=== PATIENT | male | born 1965 ===

== ENCOUNTER 2017-02-02 05:16 | Observation (INO) | payer OTHER ==
[~2017-02-02] VITALS: Ht 177.8 cm; Wt 97.5 kg
[2017-02-02] VITALS (9 sets, daily range): BP systolic 111–138; BP diastolic 70–86
[2017-02-02] MEDS ORDERED: Dexamethasone 4mg/ml vial ONE (06:10)
[2017-02-02] MEDS ORDERED: LR 1000ml 1,000 ML IVLG SCH (06:37)
--- NOTE | 2017-02-02 06:37 | Anethesia Preoperative Eval ---
Anesthesia Pre-op PMH/ROS General Date of Evaluation: Feb 02, 2017 Time of Evaluation: 07:06 Anesthesiologist: Hank ASA Score: ASA 3 Mallampati Score Class I : Soft palate, uvula, fauces, pillars visible Class II: Soft palate, uvula, fauces visible Class III: Soft palate, base of uvula visible Class IV: Only hard plate visible Mallampati Classification: Class III Surgeon: Murphy Diagnosis: Neck Pain Surgical Procedure: ACDF C5-6 Anesthesia History: none Family History: no anesthesia problems Allergies: Coded Allergies: LISINOPRIL (Verified Allergy, Severe, 02/02/17) COUGHING Medications: see eMAR Past Medical History Cardiovascular: Reports: HTN Pulmonary: Reports: ESVIN Other: obesity - BMI 30 Anesthesia Pre-op Phys. Exam Physician Exam Last Vital Signs Date Time Temp Pulse Resp B/P Pulse Ox O2 Delivery O2 Flow Rate FiO2 02/02/17 06:07 97.2 62 20 116/84 97 Room Air Constitutional: NAD Neurologic: CN 2-12 intact Cardiovascular: RRR Respiratory: CTA Gastrointestinal: S/NT/ND Airway Exam Mallampati Score: Class III MO: limited ROM: limited Teeth: intact Anesthesia Pre-op A/P Risk Assessment & Plan Assessment: ASA 3 Plan: GA, BIS, Glidescope Status Change Before Surgery: No Pre-Antibiotics Dru Grams Ancef IV Given Within 1 Hr of Incision: Yes Time Given: 07:16 Solomon Mckinney MD Feb 02, 2017 06:37
[2017-02-02] MEDS ORDERED: Surgicel 4in x 8in TOPIC ONE (06:45)
[2017-02-02] MEDS ORDERED: Ketorolac 60mg Inj IV PRN (06:45)
[2017-02-02] MEDS ORDERED: Norco 5mg/325mg tab ORAL PRN (06:45)
[2017-02-02] MEDS ORDERED: Meperidine 25mg/0.5ml Inj (FOR RIGORS ONLY) IV PRN (06:45)
[2017-02-02] MEDS ORDERED: LORazepam Inj 2mg/ml 1ml IV PRN (06:45)
[2017-02-02] MEDS ORDERED: Ketorolac 30mg Inj IV PRN (06:45)
[2017-02-02] MEDS ORDERED: Norco 7.5mg/325mg tab ORAL PRN (06:45)
[2017-02-02] MEDS ORDERED: Hydromorphone 0.5mg/0.5ml inj IVP PRN (06:45)
[2017-02-02] MEDS ORDERED: oxyCODONE HCL/Acetaminophen 5/325mg ORAL PRN (06:45)
[2017-02-02] MEDS ORDERED: Midazolam 2mg/2ml Inj IVP PRN (06:45)
[2017-02-02] MEDS ORDERED: Lidocaine 1% Plain 30 ml INJ ONE ×2 (06:45→06:46)
[2017-02-02] MEDS ORDERED: DiphenhydrAMINE 50mg/ml Inj IVP PRN (06:45)
[2017-02-02] MEDS ORDERED: Atropine Inj 1mg/10ml Syr IV PRN (06:45)
[2017-02-02] MEDS ORDERED: Dexamethasone 4mg/ml vial IVP ONE (06:45)
[2017-02-02] MEDS ORDERED: Metoclopramide 10mg/2ml Inj IVP PRN (06:45)
[2017-02-02] MEDS ORDERED: Thrombin 5000 units TOPIC ONE (06:45)
[2017-02-02] MEDS ORDERED: fentaNYL 100 mcg/2 mL IV PRN (06:45)
[2017-02-02] MEDS ORDERED: Vancomycin 1gm inj IVPB ONE (06:45)
[2017-02-02] MEDS ORDERED: Bupivacaine w/Epi 0.5% 30ml Vial INJ ONE (06:46)
[2017-02-02] MEDS ORDERED: Bupivacaine 0.5% Inj 30 ml vial INJ ONE (06:46)
[2017-02-02] MEDS ORDERED: Bacitracin 50000 Units Vial ONE (06:46)
[2017-02-02] MEDS ORDERED: Zemuron 50mg/5ml Inj IV ONE (07:00)
[2017-02-02] MEDS ORDERED: Dexamethasone Inj PF*Surgery use* 10 MG/ML VIAL IV ONE (07:00)
[2017-02-02] MEDS ORDERED: Sterile Water Irrig 1000ml IRRIG ONE (07:00)
[2017-02-02] MEDS ORDERED: Lidocaine 1% MPF 10mg/ml 5ml ONE (07:00)
[2017-02-02] MEDS ORDERED: Glycopyrrolate 0.2mg/ml 1ml Vial ONE (07:00)
[2017-02-02] MEDS ORDERED: Propofol 10mg/ml 100ml btl IV ONE (07:00)
[2017-02-02] MEDS ORDERED: Neostigmine 1mg/ml 10ml Inj ONE (07:00)
[2017-02-02] MEDS ORDERED: LR 1000ml ONE (07:00)
[2017-02-02] MEDS ORDERED: Labetalol 5mg/ml 20ml vial IV ONE (07:00)
[2017-02-02] MEDS ORDERED: ceFAZolin 1gm/50ml Premix 50 ML IV ONE (07:00)
[2017-02-02] MEDS ORDERED: fentaNYL 250mcg/5ml ONE (07:00)
[2017-02-02] MEDS ORDERED: fentaNYL 100 mcg/2 mL IV ONE ×2 (07:00)
[2017-02-02] MEDS ORDERED: NS Irrig 1000ml ONE (07:00)
[2017-02-02] MEDS ORDERED: Acetaminophen (Non formulary) 1,000 MG/100 ML ML IV ONE (07:30)
[2017-02-02] MEDS ORDERED: Muri-Lube ONE (08:23)
--- NOTE | 2017-02-02 09:29 | Immediate Post-Op Evaluation ---
Immediate Post-Op Evalulation Immediate Post-Op Evalulation Procedure: ACDF C5-6 Date of Evaluation: Feb 02, 2017 Time of Evaluation: 10:34 IV Fluids: 1000 LR Blood Products: 0 Estimated Blood Loss: 25 Urinary Output: 0 Blood Pressure Systolic: 111 Blood Pressure Diastolic: 72 Pulse Rate: 76 Respiratory Rate: 16 O2 Sat by Pulse Oximetry: 100 Temperature (Fahrenheit): 97.7 Pain Score (1-10): 3 Nausea: No Vomiting: No Complications 0 Patient Status: awake, reacts, patent, extubated, none Hydration Status: adequate Dru Grams Ancef IV Given Within 1 Hr of Incision: Yes Time Given: 07:16 Solomon Mckinney MD Feb 02, 2017 09:29
--- NOTE | 2017-02-02 09:30 | 48 Hour Post Anesthesia Eval ---
Post Anesthesia Evaluation Procedure: ACDF C5-6 Date of Evaluation: Feb 02, 2017 Time of Evaluation: 12:42 Blood Pressure Systolic: 132 0: 78 Pulse Rate: 76 Respiratory Rate: 18 Temperature (Fahrenheit): 98.2 O2 Sat by Pulse Oximetry: 99 Airway: patent Nausea: No Vomiting: No Pain Intensity: 3 Hydration Status: adequate Cardiopulmonary Status: STABLE Mental Status/LOC: patient returned to baseline Follow-up Care/Observations: 0 Post-Anesthesia Complications: 0 Follow-up care needed: N/A Solomon Mckinney MD Feb 02, 2017 09:30
--- NOTE | 2017-02-02 09:57 | Pre-Procedure Note/Attestation ---
Pre-Procedure Note/Attestation Complete Prior to Procedure Planned Procedure: not applicable Procedure Narrative: C5-C6 interbody reconstruction / fusion hemivertebrectomy C5, C6 anterior plate C5, C6 SEEP xray microscope body habitus Attestation I attest that I discussed the nature of the procedure; its benefits; risks and complications; and alternatives (and the risks and benefits of such alternatives ), prior to the procedure, with the patient (or the patient's legal loan representative). I attest that, if there was a reasonable possibility of needing a blood transfusion, the patient (or the patient's legal loan representative) was given the [place] [facility] standardized written summary, pursuant to the Donnie [place] Blood Safety Act ([place] Health and Safety Code # 1645, as amended). I attest that I re-evaluated the patient just prior to the surgery and that there has been no change in the patient's H&P, except as documented below: OKSANA TILLMAN Feb 02, 2017 09:57
--- NOTE | 2017-02-02 10:00 | Brief Operative Note ---
Immediate Post Operative Note Operative Note Pre-op Diagnosis: Post trauma HNP discogenic neck pain Procedure: hemivertebrectomy C5-6, reconstruction, fusion, plate ssep, microscope, xray, body habitus Post-op Diagnosis: same as pre-op Findings: consistent w/pre-op dx studies Surgeon: Murphy GARCÍA [employer] Academic Coach: Sofia KC Anesthesiologist: Hank Anesthesia: general Specimen: none Complications: none Condition: stable Estimated Blood Loss: minimal Implant(s) used?: Yes OKSANA TILLMAN Feb 02, 2017 09:59
[2017-02-02] MEDS ORDERED: D5 1/2NS 1,000 ML IV SCH (12:30)
--- NOTE | 2017-02-02 12:43 | Diagnostic Imaging Report ---
Indication: PAIN Technique: Intraoperative images Comparison: None Findings: Surgical tool projects the anterior aspect of the C5-6 disc. Subsequent images document anterior fusion at C5-6. Impression: Intraoperative images, as described
[2017-02-02] MEDS ORDERED: Naloxone 0.4mg/ml Inj IVP PRN (13:00)
[2017-02-02] MEDS ORDERED: HYDROmorphone 1mg/ml Carpuject SUBQ PRN (13:00)
[2017-02-02] MEDS ORDERED: oxyCODONE 5mg IR tab ORAL ONE (15:00)
[2017-02-02] MEDS ORDERED: ceFAZolin sod 1 GM in D5W 55 ML IV SCH (15:00)
[2017-02-02] MEDS ORDERED: Morphine Sulfate 4mg/ml Inj IM PRN (15:00)
[2017-02-02] MEDS ORDERED: Chloraseptic Spray 20mL Bottle ORAL PRN (15:00)
[2017-02-02] MEDS ORDERED: PERCOCET 10-321 EAC1 PO (15:11)
[2017-02-02] MEDS ORDERED: PERCOCET 10-321 EACH ORAL (15:13)
[2017-02-02] MEDS ORDERED: oxyCODONE 5mg IR tab ORAL PRN (15:15)
[2017-02-02] MEDS ORDERED: D5 1/2NS 1000ml IV ONE (16:01)
--- NOTE | 2017-02-02 16:45 | Operative Note - Dictated ---
DATE OF OPERATION: 02/02/2017 SURGEON: Lavon Arrington, Ph.D. M.D. AIR DEFENSE SPECIALIST: YAMINI Comer. ANESTHESIOLOGIST: Solomon Mckinney M.D. ANESTHESIA: General with intubation. 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 POSTOPERATIVE DIAGNOSES: Posttraumatic cervical herniated nucleus polyposis/radiculopathy. ESTIMATED BLOOD LOSS: Minimal. COMPLICATIONS: None. POSTOPERATIVE CONDITION: Good/stable. PROCEDURE: 1. Bhargav-vertebrectomy C5. 2. Bhargav-vertebrectomy C6. 3. Interbody reconstruction fusion C5-C6. 4. Anterior internal plate fixation C5-C6. 5. Intraoperative fluoroscopy interpreted by surgeon. 6. High-powered microscopic dissection. 7. SSEP monitoring. 8. The patient's body habitus greater than 95th percentile for height. DESCRIPTION OF PROCEDURE: The patient was brought to the operating room and laid in the supine position. General anesthesia with intubation was induced. IV antibiotics and IV Decadron were administered 30 minutes prior to incision time. Spinal needle within the sheath was taped to the contralateral aspect of the cervical spine. A cross-table image was obtained demonstrating the correct level for incision placement. Marker was removed. The skin was sterilely marked on the left transverse aspect of the anterior neck. The skin was sterilely prepped and draped free in the usual sterile fashion. A longitudinal transverse left incision sharply placed at the dermis and epidermis. Electrocautery dissection was carried to the subcutaneous tissue to the level of the platysmas muscle was identified, isolated, and transected in line with the incision. Dissection was carried medial to the carotid sheath and the left sternocleidomastoid muscle to the deep cervical and pretracheal fascia to the midline between the right and left longus colli muscles. Large anterior osteophyte identified. Spinal needle bent at 90-degree angle so as to avoid penetration greater than 3 mm placed into the disk space. A cross-table image obtained under sterile conditions demonstrating the correct level for further dissection. Level was marked. Needle removed. Subperiosteal dissection of the longus coli muscles. Retractors placed. Large anterior osteophyte resected with Midas Berhane bur dissection under high-power magnification. Bhargav-vertebrectomy inferior C5, superior C6 to the posterior longitudinal ligament. Anterior foraminotomy undertaken left. No dural tears or leaks noted anytime during the procedure. SSEP monitoring stable. Interpositional grafting with osteoinductive material contained within PEEK lordotic cage with the appropriate dimensions. The PEEK placed under high-power magnification. SSEP monitoring stable. All traction on the neck removed. Anterior internal fixation with 17 mm screws in a compressive fashion to an anterior plate. Anterior plate locked into position. Fluoroscopic imaging demonstrating the correct level and excellent placement. Wound irrigated with antibiotic-containing saline. Exploration revealed no evidence of excoriation or laceration of vital structures. FloSeal applied followed with vancomycin powder. Platysmas muscle reapproximated with simple interrupted sutures. Dermis and epidermis reapproximated. Surgical strips applied transverse to the incision followed with sterile bandage maintained in place with tape. The patient awakened and extubated in the operating room and transported to postop recovery in good stable condition. Lavon Arrington M.D. DR: IAIN JOB#: [id number] CC:
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
== END 2017-02-02 16:02 | disposition home or self-care (01) ==
LOC: SDSOVERFLO 05:16 → INTOOBSV 05:16 → 3E 11:22
DX: S13.161A Dislocation of C5/C6 cervical vertebrae, initial encounter (principal); X58.XXXA Exposure to other specified factors, initial encounter; Y92.89 Other specified places as the place of occurrence of the external cause; Y99.9 Unspecified external cause status; G89.18 Other acute postprocedural pain; I12.9 Hypertensive chronic kidney disease with stage 1 through stage 4 chronic kidney disease, or unspecified chronic kidney disease; N18.9 Chronic kidney disease, unspecified; E66.01 Morbid (severe) obesity due to excess calories; Z68.31 Body mass index [BMI] 31.0-31.9, adult; G47.33 Obstructive sleep apnea (adult) (pediatric); K76.0 Fatty (change of) liver, not elsewhere classified; Z87.891 Personal history of nicotine dependence
CPT/HCPCS: 22551; 22853; 36415; 72040; 76001; 86850; 86900; 86901; 87081; 97116; 97161; 97530; G0378; J0690; J1100; J2001; J2250; J2405; J2704; J2710; J2765; J3010; J3370; J7120

== ENCOUNTER 2017-03-18 05:13 | Inpatient (IN) | payer OTHER ==
[2017-03-18] VITALS (13 sets, daily range): BP systolic 111–145; BP diastolic 64–91
[~2017-03-18] VITALS: Ht 177.8 cm; Wt 93.9 kg
[~2017-03-18 05:13] MED LIST: PERCOCET 10-321 EAC1 PO; PERCOCET 10-321 EACH ORAL
[2017-03-18] MEDS ORDERED: LR 1000ml 1,000 ML IVLG SCH (06:16)
--- NOTE | 2017-03-18 06:28 | Anethesia Preoperative Eval ---
Anesthesia Pre-op PMH/ROS General Date of Evaluation: Mar 18, 2017 Time of Evaluation: 07:07 Anesthesiologist: Hank ASA Score: ASA 3 Mallampati Score Class I : Soft palate, uvula, fauces, pillars visible Class II: Soft palate, uvula, fauces visible Class III: Soft palate, base of uvula visible Class IV: Only hard plate visible Mallampati Classification: Class III Surgeon: Murphy Diagnosis: Back Pain Surgical Procedure: ALIF L5-S1, PSF Anesthesia History: none Family History: no anesthesia problems Allergies: Coded Allergies: LISINOPRIL (Verified Allergy, Severe, 02/02/17) COUGHING Medications: see eMAR Past Medical History Cardiovascular: Reports: HTN Pulmonary: Reports: ESVIN - CPAP Other: obesity - BMI 34 PSxH Narrative: Cervical Spine SX, Nose SX Anesthesia Pre-op Phys. Exam Physician Exam Last Vital Signs Date Time Temp Pulse Resp B/P (MAP) Pulse Ox O2 Delivery O2 Flow Rate FiO2 03/18/17 05:57 97.8 64 20 122/85 96 Room Air Constitutional: NAD Neurologic: CN 2-12 intact Cardiovascular: RRR Respiratory: CTA Gastrointestinal: S/NT/ND Airway Exam Mallampati Score: Class III MO: limited ROM: limited Teeth: intact Anesthesia Pre-op A/P Risk Assessment & Plan Assessment: ASA 3 Plan: GA, BIS, Glidescope Status Change Before Surgery: No Pre-Antibiotics Dru Grams Ancef IV Given Within 1 Hr of Incision: Yes Time Given: 07:26 Solomon Mckinney MD Mar 18, 2017 06:28
[2017-03-18] MEDS ORDERED: Norco 7.5mg/325mg tab ORAL PRN (06:30)
[2017-03-18] MEDS ORDERED: Acetaminophen (Non formulary) 100 ML IV ONE (06:30)
[2017-03-18] MEDS ORDERED: Meperidine 25mg/0.5ml Inj (FOR RIGORS ONLY) IV PRN (06:30)
[2017-03-18] MEDS ORDERED: Ketorolac 30mg Inj IV PRN (06:30)
[2017-03-18] MEDS ORDERED: Midazolam 2mg/2ml Inj IVP PRN (06:30)
[2017-03-18] MEDS ORDERED: DiphenhydrAMINE 50mg/ml Inj IVP PRN (06:30)
[2017-03-18] MEDS ORDERED: Atropine Inj 1mg/10ml Syr IV PRN (06:30)
[2017-03-18] MEDS ORDERED: fentaNYL 100 mcg/2 mL IV PRN (06:30)
[2017-03-18] MEDS ORDERED: LORazepam Inj 2mg/ml 1ml IV PRN (06:30)
[2017-03-18] MEDS ORDERED: Norco 5mg/325mg tab ORAL PRN (06:30)
[2017-03-18] MEDS ORDERED: Hydromorphone 0.5mg/0.5ml inj IVP PRN (06:30)
[2017-03-18] MEDS ORDERED: Ketorolac 60mg Inj IV PRN (06:30)
[2017-03-18] MEDS ORDERED: Metoclopramide 10mg/2ml Inj IVP PRN ×2 (06:30→12:30)
[2017-03-18] MEDS ORDERED: oxyCODONE HCL/Acetaminophen 5/325mg ORAL PRN (06:30)
--- NOTE | 2017-03-18 06:43 | Immediate Post-Op Evaluation ---
Immediate Post-Op Evalulation Immediate Post-Op Evalulation Procedure: ALIF L5-S1 Date of Evaluation: Mar 18, 2017 Time of Evaluation: 12:10 IV Fluids: 1900 LR Blood Products: 0 Estimated Blood Loss: 50 Urinary Output: 450 Blood Pressure Systolic: 111 Blood Pressure Diastolic: 62 Pulse Rate: 71 Respiratory Rate: 16 O2 Sat by Pulse Oximetry: 100 Temperature (Fahrenheit): 97.2 Pain Score (1-10): 3 Nausea: No Vomiting: No Complications 0 Patient Status: awake, reacts, patent, extubated, none Hydration Status: adequate Dru Grams Ancef IV Given Within 1 Hr of Incision: Yes Time Given: 07:26 Solomon Mckinney MD Mar 18, 2017 06:43
--- NOTE | 2017-03-18 06:44 | 48 Hour Post Anesthesia Eval ---
Post Anesthesia Evaluation Procedure: ALIF L5-S1 Date of Evaluation: Mar 18, 2017 Time of Evaluation: 14:12 Blood Pressure Systolic: 126 0: 84 Pulse Rate: 67 Respiratory Rate: 18 Temperature (Fahrenheit): 98.2 Airway: patent Nausea: No Vomiting: No Pain Intensity: 3 Hydration Status: adequate Cardiopulmonary Status: Stable Mental Status/LOC: patient returned to baseline Follow-up Care/Observations: 0 Post-Anesthesia Complications: 0 Follow-up care needed: N/A Solomon Mckinney MD Mar 18, 2017 06:44
[2017-03-18] MEDS ORDERED: PCA Morphine 1mg/ml 30 ML IV PRN (06:45)
[2017-03-18] MEDS ORDERED: Chloraseptic Spray 20mL Bottle ORAL PRN (06:45)
[2017-03-18] MEDS ORDERED: Surgicel 4in x 8in TOPIC ONE (06:55)
[2017-03-18] MEDS ORDERED: Thrombin 5000 units TOPIC ONE (06:55)
[2017-03-18] MEDS ORDERED: Vancomycin 1gm inj IVPB ONE (06:55)
[2017-03-18] MEDS ORDERED: Lidocaine 1% 10mg/ml/Epi 0.005mg/ml 30ml vial INJ ONE (06:56)
[2017-03-18] MEDS ORDERED: Bacitracin 50000 Units Vial ONE (06:56)
[2017-03-18] MEDS ORDERED: Bupivacaine 0.5% Inj 30 ml vial INJ ONE (06:56)
[2017-03-18] MEDS ORDERED: Heparin 5000 units/ml inj ONE (06:56)
[2017-03-18] MEDS ORDERED: Sterile Water Irrig 1000ml IRRIG ONE (07:00)
[2017-03-18] MEDS ORDERED: Lidocaine 1% MPF 10mg/ml 5ml ONE (07:00)
[2017-03-18] MEDS ORDERED: Lidocaine 1% Plain 30 ml INJ ONE (07:00)
[2017-03-18] MEDS ORDERED: Zemuron 50mg/5ml Inj IV ONE (07:00)
[2017-03-18] MEDS ORDERED: Sodium Chloride 10ml vial INJ ONE (07:00)
[2017-03-18] MEDS ORDERED: Labetalol 5mg/ml 20ml vial IV ONE (07:00)
[2017-03-18] MEDS ORDERED: fentaNYL 100 mcg/2 mL IV ONE (07:00)
[2017-03-18] MEDS ORDERED: Propofol 1,000mg/ 100ml btl IV ONE (07:00)
[2017-03-18] MEDS ORDERED: Dexamethasone 20mg/5ml IVP ONE (07:00)
[2017-03-18] MEDS ORDERED: Neostigmine 1mg/ml 10ml Inj ONE (07:00)
[2017-03-18] MEDS ORDERED: Dexamethasone 4mg/ml vial ONE (07:00)
[2017-03-18] MEDS ORDERED: LR 1000ml ONE (07:00)
[2017-03-18] MEDS ORDERED: ceFAZolin 1gm/50ml Premix 50 ML IV ONE (07:00)
[2017-03-18] MEDS ORDERED: Glycopyrrolate 0.2mg/ml 1ml Vial ONE (07:00)
[2017-03-18] MEDS ORDERED: NS Irrig 1000ml ONE (07:00)
--- NOTE | 2017-03-18 07:12 | Pre-Procedure Note/Attestation ---
Pre-Procedure Note/Attestation Complete Prior to Procedure Planned Procedure: not applicable Procedure Narrative: L5-S1 Anterior Insterbody Reconstruction, Fusion Posterior Pedicle Screw Instrumentation Indications for Procedure Pre-Operative Diagnosis: Post trauma Lumbar L5-S1 Instability Attestation I attest that I discussed the nature of the procedure; its benefits; risks and complications; and alternatives (and the risks and benefits of such alternatives ), prior to the procedure, with the patient (or the patient's legal pharmaceutical specialty representative). I attest that, if there was a reasonable possibility of needing a blood transfusion, the patient (or the patient's legal pharmaceutical specialty representative) was given the [facility] standardized written summary, pursuant to the Donnie [place] Blood Safety Act ([place] Health and Safety Code # 1645, as amended). I attest that I re-evaluated the patient just prior to the surgery and that there has been no change in the patient's H&P, except as documented below: OKSANA TILLMAN Mar 18, 2017 07:12
[2017-03-18] MEDS: Docusate 100mg/10ml Liq ORAL SCH ×2 (09:00→18:20)
[2017-03-18] MEDS ORDERED: Docusate 100mg/10ml Liq NG SCH (09:00)
--- NOTE | 2017-03-18 12:16 | Brief Operative Note ---
Immediate Post Operative Note Operative Note Pre-op Diagnosis: Post trauma Lumbar L5-S1 Instability Procedure: Anterior L5-S1 Correction deformity fusion bmp internal device - internal fixation ssep xray Posterior L5 Laminectomy Fusion L5,S1 pedicle screws L5, S1 ssep xray local Post-op Diagnosis: same as pre-op Findings: consistent w/pre-op dx studies Surgeon: anterior: Murphy Kennedy Diet Attendant: Posterior Sofia KC Anesthesiologist: Hank GARCÍA Anesthesia: general Specimen: none Complications: none Condition: stable Fluids: anesthesia Estimated Blood Loss: minimal Drains: none Implant(s) used?: Yes OKSANA TILLMAN Mar 18, 2017 12:16
[2017-03-18] MEDS ORDERED: Milk of Magnesia 30ml Ud ORAL PRN (12:30)
[2017-03-18] MEDS: PCA Morphine 1mg/ml 30 ML IV PRN (13:18)
[2017-03-18] MEDS ORDERED: Rate Change PCA 1 Each MISC PRN (13:30)
--- NOTE | 2017-03-18 15:47 | Diagnostic Imaging Report ---
Indication: Pain in low back and left lower extremity greater than right lower extremity Technique: Intraoperative images Comparison: None Findings: Intraoperative images demonstrate a disc spacer at L5-S1. Subsequent images demonstrate localizing tool posterior to the superior endplate of L5, and placement of posterior fusion hardware bridging L5 and S1. Impression: Intraoperative imaging, as described
[2017-03-18] MEDS: D5 1/2NS 1,000 ML IV SCH ×2 (16:05→22:05)
[2017-03-18] MEDS: ceFAZolin sod 1 GM in D5W 55 ML IV SCH ×2 (16:06→22:43)
--- NOTE | 2017-03-18 18:15 | Operative Note - Dictated ---
DATE OF OPERATION: 03/18/2017 DICTATING PHYSICIAN: Jose Kennedy M.D. VASCULAR SURGEON: Jose Kennedy M.D. SPINE SURGEON: Lavon Arrington M.D. PREOPERATIVE DIAGNOSIS: Degenerative disk disease. POSTOPERATIVE DIAGNOSIS: Degenerative disk disease. Procedure Performed: Anterior retroperitoneal exposure of L5-S1 vertebral interspace. Indications: The patient is a very pleasant 51-year-old gentleman, who is seen in my office prior to surgery. He has been scheduled for anterior fusion at L5-S1. He has been made aware of the need for vascular surgery involvement for vascular mobilization of the iliac vessels, possible vascular injury, possible need for blood transfusion, deep venous thrombosis were explicitly discussed prior to surgery. Description Of Findings: A low vertical midline incision was used. A left retroperitoneal approach was used. There was no peritoneal or ureteral violation. L5-S1 was obtained below the iliac bifurcation with retraction of left iliac vessels superior and laterally. On completion, the peritoneum and ureter were intact. Iliac vessels were intact. Palpable femoral and pedal pulses on completion. BLOOD LOSS: Less than 50 mL. Description Of Procedure: The patient was taken to the operating room. General anesthesia was used. IV antibiotics were given. The patient's abdomen was prepped and draped. Appropriate time-out procedures were taken. A low vertical midline incision was made. The anterior fascia was incised longitudinally midline. A plane was identified posterior to the left rectus abdominis and developed posterolaterally towards the patient's left. The retroperitoneal space entered below the arcuate line. The peritoneum and ureter mobilized towards the patient's right exposing the left common iliac artery and vein. Dissection was carried on undersurface of the left common iliac vein. The middle sacral artery and vein were identified and using bipolar electrocautery and divided. This allowed us to retract the left common iliac vessels superiorly and laterally and expose the anterior surface of the L5 and S1. The Omni retractor was then set in place. Fluoroscopy was then used to confirm the appropriate level. Then instrumentation and fusion were performed at L5-S1 dictated separately. On completion, the retractors were gently removed. The peritoneum and ureter were intact. The iliac vessels were intact. Anterior fascia was then closed using #1 PDS in a running fashion and the skin and subcutaneous tissue were closed using 3-0 Vicryl and 4-0 Monocryl. Jose Cristobal Kennedy DR: Loretta JOB#: [id number] CC: Lavon Arrington M.D.
[2017-03-18] MEDS ORDERED: Albuterol ud Inhalation HHN SCH (19:00)
[2017-03-18] MEDS: PCA shift volume MISC SCH (19:27)
[2017-03-18] MEDS: DuoNeb 0.5-3(2.5)mg/3ml neb HHN SCH (20:02)
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
--- NOTE | 2017-03-18 21:45 | Operative Note - Dictated ---
DATE OF OPERATION: 03/18/2017 PRIMARY SURGEON: Lavon Arrington, Ph.D., M.D. Admitting/Preoperative Diagnosis: Posttraumatic lumbar spine instability. POSTOPERATIVE DIAGNOSIS: Posttraumatic lumbar spine instability. OPERATIVE PROCEDURE: 1. Anterior L5-S1 correction deformity, interbody device fusion, internal fixation, placement of bone morphogenic protein, SSEP monitoring, and high-power microscopic dissection. 2. Posterior bilateral pedicle screw instrumentation, L5-S1, SSEP monitoring, intraoperative fluoroscopy interpreted by surgeon, laminectomy L5, and bilateral facet fusion L5-S1. 3. Local anesthetic applied by surgeon and high-powered dissection. SURGEON ANTERIOR: Lavon Arrington, Ph.D., M.D. Co-surgeon For Fusion: Jose Kennedy M.D., Vascular Surgery, please see separate report for exposure and closing anterior Dr. Kennedy. Posterior Dynamite Reclaimer: YAMINI Comer with Dr. Lavon Arrington as primary surgeon. ANESTHESIOLOGIST: Solomon Mckinney M.D. ANESTHESIA: General anesthesia with intubation. ESTIMATED BLOOD LOSS: Less than 50 mL. COMPLICATIONS: None. POSTOPERATIVE CONDITION: Good/stable. Operative Procedure: The patient was brought to the operating room and in the supine position, general anesthesia with intubation was induced. IV antibiotics and IV Decadron were administered 30 minutes prior to incision time. After appropriate position and sterile preparation of the anterior abdomen with a draped free in usual sterile fashion, exposure was undertaken with Dr. Kennedy and Dr. Arrington assist, please see separate report. Confirmation was undertaken on AP and lateral planes with sterile fluoroscopic guidance at L5-S1. Collapse noted deformity. Annulotomy performed followed with diskectomy to, but not through the posterior longitudinal ligament. Interpositional use of [place] Aero device lordotic with pins deployed into the subchondral bone. SSEP monitoring stable at all times. No cerebrospinal fluid leakage noted anytime during the procedure, the Aero graft containing bone morphogenic protein for fusion. After closure with appropriate anterior abdominal bandage, the patient was carefully turned to the prone position onto a new operating table. All instrumentation/devices utilized for the anterior surgery was taken from the room and replaced with new sterile instruments. Back was sterilely prepped. A spinal needle was placed into the subcutaneous tissue for determination and interpretation by Dr. Arrington for incision placement. Level was marked. Back was resterilely prepped and draped free in usual sterile fashion. A longitudinal midline incision over the appropriate intervals was sharply placed through the dermis and epidermis. Electrocautery dissection through the subcutaneous tissue to the lumbodorsal fascia was incised right and left of midline over the respective intervals. On a preoperative basis, the patient had a midline herniated nucleus pulposus. A laminectomy was performed at L5 on the high-power magnification for decompression. No dural tears or leaks noted anytime during the procedure. Bilateral facet fusions undertaken with local autograft. Pedicle screw instrumentation at bilateral L5 and bilateral S1 with fluoroscopic guidance and use of anatomical landmarks with drilling of the posterior cortex. Pedicle finder placed into the pedicle, depth determination followed with tapping, and physical ball tip probe utilization for determination of cortical wall integrity. SSEP monitoring stable at all times. No EMG activity. Screw placed. After all four screws were appropriately placed, electrical stimulation to 5 milliamps was undertaken and negative for all screws and recorded. Interconnecting rods of appropriate dimensions were placed, maintained lordosis. Clamped and torqued into position. Wound was copiously irrigated with antibiotic-containing saline. Sequential reapproximation of the paraspinal muscles, lumbodorsal fascia, and subcutaneous tissue. Dermis and epidermis further reapproximated with running subcuticular sutures. Local anesthetic applied in bilateral lateral aspects in the dermal/subcutaneous tissue interval as local anesthetic. Surgical strips applied followed a sterile bandage maintained in place with tape. The patient carefully turned from the prone to the supine position on the transport bed where he was awakened and extubated in the operating room and transported to postoperative recovery in good stable condition. Lavon Arrington M.D. DR: Dane JOB#: [id number] CC:
[2017-03-19] VITALS: BP 104/66
[2017-03-19] MEDS: DuoNeb 0.5-3(2.5)mg/3ml neb HHN SCH ×2 (01:38→08:38)
[2017-03-19] MEDS: PCA Morphine 1mg/ml 30 ML IV PRN ×2 (03:25→15:57)
[2017-03-19 04:00] VITALS: BP 106/64
[2017-03-19] MEDS: D5 1/2NS 1,000 ML IV SCH ×4 (06:45→22:39)
[2017-03-19] MEDS: PCA shift volume MISC SCH ×2 (07:13→19:07)
[2017-03-19] MEDS: ceFAZolin sod 1 GM in D5W 55 ML IV SCH (07:40)
[2017-03-19 08:00] VITALS: BP 110/69
[2017-03-19] MEDS ORDERED: DuoNeb 0.5-3(2.5)mg/3ml neb HHN PRN (08:00)
[2017-03-19] MEDS: Docusate 100mg/10ml Liq ORAL SCH ×2 (08:26→17:27)
[2017-03-19] MEDS ORDERED: Tubing IV Secondary IV ONE (10:25)
[2017-03-19] MEDS ORDERED: D5 1/2NS 1000ml IV ONE (10:25)
[2017-03-19 12:00] VITALS: BP 115/74
[2017-03-19 16:00] VITALS: BP 125/79
--- NOTE | 2017-03-19 16:00 | Progress Note ---
DATE: 03/19/2017 ACUTE PAIN MANAGEMENT PHYSICIAN PROGRESS NOTE Medications: Medication administration record reviewed. Medications include Chloraseptic, Protonix, Roxicodone, Zofran, Narcan, morphine BID CLERK, Reglan, milk of magnesia, Colace, Benadryl, Catapres, Soma, Mylanta, and albuterol nebulizers. LABORATORY STUDIES: No interval laboratory studies. OBJECTIVE: Vital Signs: Afebrile, pulse 100, respirations 18, blood pressure 106/64, and oxygen saturation 96% on supplemental oxygen. I spent over 60 minutes in consultation today. I saw the patient at the bedside after discussion with the nurse RN, Corry. The patient is doing extremely well after his extensive lumbar spine instrumentation surgery yesterday. Neurologically, he appears grossly intact. Moving all extremities x4. A 5/5 dorsiflexion, 5/5 plantar flexion of bilateral lower extremities. The patient is alert and oriented x3. He has nasal cannula oxygen in place. He is breathing comfortably. He has been receiving nebulizer albuterol treatment and denies any shortness of breath or chest pain. The patient has been using his BID CLERK morphine unit with good efficacy. There was no over sedation. He has no nausea symptoms or other adverse side effects currently. The patient has not been passing flatus after his anterior lumbar fusion surgery that is expected. He does have hypoactive bowel sounds. We will continue to monitor scientology of bowel function. In that regard, we will keep the patient on a diet of NPO except for medications and sips. He will remain on IV fluids for adequate intravascular hydration. The patient has been compliant using his incentive spirometer. The patient does have sequential compression pneumatic devices on bilateral lower extremity for DVT prophylaxis. Overall, the patient is proceeding on schedule. We will continue supportive treatment. The patient will start physical therapy training later today. Armani Mcfarlane M.D. DR: DALTON JOB#: [id number] CC:
[2017-03-19] MEDS: Morphine Sulfate 4mg/ml Inj IM PRN (19:58)
[2017-03-19 20:00] VITALS: BP 141/83
[2017-03-20] VITALS (7 sets, daily range): BP systolic 123–132; BP diastolic 77–89
[2017-03-20] MEDS: PCA Morphine 1mg/ml 30 ML IV PRN ×2 (01:10→09:41)
[2017-03-20] MEDS: D5 1/2NS 1,000 ML IV SCH ×3 (06:38→21:27)
[2017-03-20] MEDS: PCA shift volume MISC SCH (07:16)
[2017-03-20] MEDS: Docusate 100mg/10ml Liq ORAL SCH ×2 (08:50→17:25)
[2017-03-20] MEDS ORDERED: D5 1/2NS 1000ml IV ONE (09:25)
[2017-03-20] MEDS ORDERED: Naloxone 0.4mg/ml Inj IVP PRN (13:30)
--- NOTE | 2017-03-20 16:30 | Progress Note ---
DATE: 03/20/2017 ACUTE PAIN MANAGEMENT PHYSICIAN PROGRESS NOTE Medications: Medication administration record reviewed. Medications include IV fluids, Colace, Protonix, AUTOGLAZIER morphine, Mylanta, Zofran, oxycodone, Benadryl, morphine, Catapres, Chloraseptic, Soma, intramuscular morphine, Narcan, milk a magnesia, and albuterol. LABORATORY STUDIES: No interval laboratory studies. OBJECTIVE: Vital Signs: Afebrile, pulse 97, respirations 18, blood pressure 123/86, and oxygen saturation 94% on supplemental oxygen. I spent over 60 minutes in consultation today. I discussed the case with the surgeon, Dr. Arrington and the nurse RN, Nerissa. The patient still has not passed positive flatus after his anterior approach lumbar spine fusion surgery. Therefore, we will continue with his diet of NPO except for medications and ice chips until there is a better evidence of buddhism of bowel function. The patient denies any nausea symptoms. He is starting to gain an appetite. These are all good signs. The patient has been ambulating out of bed. As expected, the worst pain is moving in and out of bed. The patient states that once he is walking, he feels quite comfortable. He has received a breakthrough morphine injection intramuscular, which worked quite well. Therefore, I will trial him off of the AUTOGLAZIER at noontime today and switch him over to intramuscular morphine and oral oxycodone along with Soma for analgesia. The patient states that he already has pain medicines at home when he is discharged home from the hospital. The patient will continue on IV fluids for hydration. The Hough catheter remains in place. I will defer to neurosurgeon, Dr. Arrington, when to remove the Hough catheter. The patient is compliant using his incentive spirometer. Overall, the patient is progressing quite well after his extensive lumbar spine instrumentation surgery. We will continue his supportive care and continue to advance his physical therapy training. Armani Mcfarlane M.D. DR: DALTON JOB#: [id number] CC:
[2017-03-20] MEDS: oxyCODONE 5mg IR tab ORAL PRN ×2 (16:47→22:03)
[2017-03-21] VITALS: BP 130/78
[2017-03-21 04:00] VITALS: BP 139/82
[2017-03-21] MEDS: oxyCODONE 5mg IR tab ORAL PRN ×2 (04:23→09:28)
[2017-03-21] MEDS: D5 1/2NS 1,000 ML IV SCH ×3 (05:20→22:30)
[2017-03-21 08:00] VITALS: BP 108/74
[2017-03-21] MEDS: Docusate 100mg/10ml Liq ORAL SCH ×2 (09:26→18:14)
[2017-03-21 12:00] VITALS: BP 112/80
[2017-03-21 16:00] VITALS: BP 119/85
[2017-03-21] MEDS ORDERED: Simethicone 80mg tab ORAL PRN (18:45)
[2017-03-21] MEDS ORDERED: Simethicone 80mg tab ORAL ONE (18:47)
[2017-03-21] MEDS: Morphine Sulfate 4mg/ml Inj IM PRN (18:47)
[2017-03-21 20:00] VITALS: BP 118/87
--- NOTE | 2017-03-21 22:15 | Progress Note ---
DATE: 03/21/2017 ACUTE PAIN MANAGEMENT PHYSICIAN PROGRESS NOTE Medications: Medication administration record reviewed. Medications include Mylicon, Chloraseptic, Protonix, Roxicodone, Zofran, Narcan, morphine, milk of magnesia, Colace, Benadryl, Catapres, Soma, Mylanta, and Tylenol. LABORATORY STUDIES: No interval laboratory studies. OBJECTIVE: Vital Signs: Afebrile, pulse 98, respirations 19, blood pressure 119/85, and oxygen saturation 96% on room air. I spent over 60 minutes in consultation today. I discussed the case with the nurse RN, Chel, along with the surgeon, Dr. Lavon Arrington, and the patient's cell attendant helper, Guzman Corona Medranoer. The patient has been making forward progress after his extensive lumbar spine surgery. He is passing positive flatus and Dr. Arrington has advanced his diet. Dr. Arrington also ordered to remove the patient's Hough and the patient has been voiding urine without difficulties. I did stop CUSTOM HARVESTER unit, an intramuscular dosing with morphine has been quite effective. I also will add oral oxycodone and Soma, which can be used when the patient's diet and appetite are better advanced. The patient does have plenty of oxycodone at home already for home usage. The patient has been having considerable abdominal gas pains despite passing flatus already. He has had several doses of Maalox and I have ordered simethicone 80 mg q.8 hours hours to help as well. I also encouraged continued aggressive ambulation. The patient is able to walk with his front-wheel walker without other assistance. He continues on IV fluids for now and would rather continue until his nausea symptoms resolve. The patient has been fairly compliant using his incentive spirometer, I encouraged more aggressive usage to provide postoperative atelectasis. The patient's mood appears stable and he is quite pleasant. The patient is breathing comfortably. We will continue on Protonix for GI ulcer prophylaxis. The patient will continue ambulating for DVT prophylaxis along with the usage of sequential compression pneumatic devices for mechanical prophylaxis when in-bed. We will continue to monitor the patient's taoism of bowel function and continue improving with ambulation as tolerated. Armani Mcfarlane M.D. DR: ANTOINE JOB#: [id number] CC:
[2017-03-22] VITALS: BP 109/76
[2017-03-22 04:00] VITALS: BP 132/97
[2017-03-22] MEDS: Morphine Sulfate 4mg/ml Inj IM PRN ×3 (04:39→15:34)
[2017-03-22] MEDS: D5 1/2NS 1,000 ML IV SCH ×2 (06:30→15:40)
[2017-03-22 08:00] VITALS: BP 140/98
[2017-03-22] MEDS: Docusate 100mg/10ml Liq ORAL SCH ×2 (09:31→18:37)
[2017-03-22 12:00] VITALS: BP 135/92
[2017-03-22 16:00] VITALS: BP 135/94
[2017-03-22 20:00] VITALS: BP 133/94
[2017-03-22] MEDS: oxyCODONE 5mg IR tab ORAL PRN (20:32)
[2017-03-23] VITALS: BP 125/86
[2017-03-23 04:00] VITALS: BP 135/90
--- NOTE | 2017-03-23 06:30 | Progress Note ---
DATE: 03/22/2017 ACUTE PAIN MANAGEMENT PHYSICIAN PROGRESS NOTE MEDICATIONS: Medication administration record reviewed. Medications: Include Mylicon, Chloraseptic, Protonix, Roxicodone, Zofran, Narcan, intramuscular morphine, milk of magnesia, Colace, Benadryl, Catapres, Soma, Mylanta and Tylenol. LABORATORY STUDIES: No interval laboratory studies. OBJECTIVE: Vital Signs: Afebrile, pulse 100, respirations 20, blood pressure 135/94, and oxygen saturation 98% on room air. I spent over 60 minutes in consultation today. I discussed the case with the nurse RN, Chel and saw the patient at bedside. Earlier today, the patient was continuing to have severe episodes of excruciating sharp abdominal pain. With further aggressive ambulation along with simethicone, the patient began passing more flatus, and the pain has eased. The patient has continued to use intramuscular morphine primarily and oxycodone remains available as an oral analgesic. The patient has a compliant using his incentive spirometer. The patient was started on regular diet for lunch today and tolerated both lunch and dinner without any nausea or vomiting. At this stage, we await the patient have a bowel movement to show a full christianity of gastrointestinal function after his abdominal approach lumbar spine fusion surgery procedure. Dr. Arrington is following the patient closely and will use laxatives as he feels appropriate. The patient is breathing comfortably on room air. With better oral intake, I feel comfortable to Hep-Lock his intravenous fluids at this time, which also will help encourage the patient to ambulate more frequently. Armani Mcfarlane M.D. DR: VIVIANA JOB#: [id number] CC:
[2017-03-23 08:00] VITALS: BP 127/92
[2017-03-23] MEDS: oxyCODONE 5mg IR tab ORAL PRN ×2 (08:43→19:22)
[2017-03-23] MEDS: Docusate 100mg/10ml Liq ORAL SCH ×2 (08:43→17:40)
[2017-03-23 12:00] VITALS: BP 127/86
[2017-03-23 16:00] VITALS: BP 130/90
[2017-03-23] MEDS ORDERED: D5 1/2NS 1000ml IV ONE ×2 (18:35→20:59)
[2017-03-23] MEDS ORDERED: LR 1000ml ONE (18:35)
--- NOTE | 2017-03-23 22:15 | Progress Note ---
DATE: 03/23/2017 ACUTE PAIN MANAGEMENT PHYSICIAN PROGRESS NOTE MEDICATIONS: Medication administration record reviewed. Medications: Include Mylicon, Chloraseptic, Protonix, oxycodone, Zofran, Narcan, morphine, milk of magnesia, Colace, Benadryl, Catapres, Soma, Mylanta, and Tylenol. LABORATORY STUDIES: No interval laboratory studies. OBJECTIVE: Vital Signs: Afebrile, pulse 89, respirations 18, blood pressure 127/86, and oxygen saturation 95% on room air. I spent over 60 minute in consultation today. I saw the patient at bedside with the nurse RN, Pineda. I discussed the case with the surgeon, Dr. Arrington. The patient continued to improve considerably after his extensive lumbar spine surgery. He has been ambulating very well. He had a bowel movement this morning and all abdominal bloating and gas pains have resolved as well. The patient is in good spirits. Pain is well controlled using oral analgesics. The patient denies any shortness of breath or chest pain. The patient has excellent support at home who can assist with activities of daily living. The patient will continue using incentive spirometer once he discharges home. I expect the surgeon will discharge the patient home later today to his family. The wound appear clean and dry. The patient is afebrile and shows no evidence of postoperative infection. Armani Mcfarlane M.D. DR: VIVIANA JOB#: [id number] CC:
--- NOTE | 2017-03-25 08:55 | Discharge Summary ---
Discharge Summary Hospital Course Date of Admission Mar 18, 2017 at 05:13 Date of Discharge Mar 23, 2017 at 21:00 Admitting Diagnosis HPI Sam Jesus is a 51 year old male who was admitted on Mar 18, 2017 at 05:13 for Lumbar Instability Hospital Course [id number] Discharge Discharge Disposition Patient was discharged to Home (01) Discharge Diagnoses: Neli Saunders GRAPHITE PAN DRIER TENDER Mar 25, 2017 08:55
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
== END 2017-03-23 21:00 | disposition home or self-care (01) | DRG 455 ==
LOC: SDSOVERFLO 05:13 → 3E 13:55
PROC: 0SG3071 Fusion of Lumbosacral Joint with Autologous Tissue Substitute, Posterior Approach, Posterior Column, Open Approach (ICD-10-PCS; principal; 2017-03-18 07:00)
PROC: 0SG30A0 Fusion of Lumbosacral Joint with Interbody Fusion Device, Anterior Approach, Anterior Column, Open Approach (ICD-10-PCS; principal; 2017-03-18 07:00)
PROC: 4A11X4G Monitoring of Peripheral Nervous Electrical Activity, Intraoperative, External Approach (ICD-10-PCS; principal; 2017-03-18 07:00)
PROC: 3E0U0GB Introduction of Recombinant Bone Morphogenetic Protein into Joints, Open Approach (ICD-10-PCS; principal; 2017-03-18 07:00)
DX: M53.2X7 Spinal instabilities, lumbosacral region (principal); K76.0 Fatty (change of) liver, not elsewhere classified; I12.9 Hypertensive chronic kidney disease with stage 1 through stage 4 chronic kidney disease, or unspecified chronic kidney disease; G47.33 Obstructive sleep apnea (adult) (pediatric); N18.9 Chronic kidney disease, unspecified; G89.18 Other acute postprocedural pain; Z72.0 Tobacco use
CPT/HCPCS: 36415; 72020; 76001; 86850; 86900; 86901; 87081; 94003; 94150; 94640; 94664; 94760; J2405; J2710; J7620